=== PATIENT | male | born 1980 | race Caucasian/White ===

== ENCOUNTER → 2020-08-14 13:25 | Outpatient (CLI) | payer OTHER, SELFPAY ==
--- NOTE | ~2020-08-14 | XR_ITS ---
XR hand LT min 3V 08/14/2020 13:55 INDICATION: Left hand pain PROCEDURE: 3 views left hand COMPARISON: No prior studies for comparison. FINDINGS: Fracture, dislocation or subluxation is not identified. The soft tissues appear within norm al limits. No foreign bodies are identified. IMPRESSION: 1: NO ACUTE BONE OR JOINT ABNORMALITY IDENTIFIED. Reviewed, dictated and finalized at location B. ENT REGISTRATION MANAGER
== END ==
PROVIDERS: PCP Family Medicine; Visit Provider Nurse Practitioner
DX: M79.642 Pain in left hand (principal)
CPT/HCPCS: 73130

== ENCOUNTER 2021-03-25 09:02 | Emergency (ER) | payer OTHER, SELFPAY ==
--- NOTE | ~2021-03-25 | CT_ITS ---
EXAMINATION: CTA chest PE protocol EXAM DATE: 03/25/2021 10:42 INDICATION: Pleuritic chest pain, sob, COVID +, elevated dimer TECHNIQUE: Spiral CTA of the chest (pulmonary arteries) was performed with 100 cc Omnipaque 350 intr avenous contrast injection. Images were acquired during the pulmonary arterial phase. Coronal maxi mum intensity projection 3D-reconstructions were created by the technologist on dedicated workstation . Axial, coronal and sagittal reformatted images were reviewed. The dose-length product (DLP) for t his examination was 586.47 mGy-cm. The exposure was tailored according to patient size (auto mA exp osure control), and iterative reconstruction (ASIR) was used as additional dose reduction technique. There is no prior study for comparison. FINDINGS: Pulmonary arteries are well opacified and without intraluminal filling defects. No thora cic aortic dissection. There is moderate amount of peripheral and dependent predominant airspace dis ease with some volume loss, combination of pneumonia and atelectasis. Appearance is consistent with s ubacute stage COVID pneumonia. There are no pleural or pericardial effusions. Tracheobronchial taqueria e is patent. There is no mediastinal, hilar or axillary lymphadenopathy. There is no pneumothorax . Borderline cardiomegaly. No evidence of coronary arterial calcification. Upper abdomen is unrem arkable. There is thoracic spondylosis without osteoblastic or osteolytic lesions identified. IMPRESSION: 1. Moderate amount of subacute stage COVID pneumonia. 2. No pulmonary emboli. 3. Borderline heart enlargement. Reviewed, dictated and finalized at location B.
--- NOTE | ~2021-03-25 | XR_ITS ---
XR chest 1V portable DATE: 03/25/2021 09:19 INDICATION: Chest pain, shortness of breath, Covid-positive TECHNIQUE: Portable upright AP chest on 03/25/2021 at 0919 hours COMPARISON: 06/26/2013 1 view chest FINDINGS: There is hyperexpansion of the lungs. There are diffuse patchy bilateral pulmonary infiltra levon and/or atelectasis relatively sparing only the apices. No pleural effusion. No pneumothorax. Heart size appears normal. IMPRESSION: Hypoexpanded lungs and patchy bilateral infiltrate and/or atelectasis Reviewed, dictated and finalized at location A. IMPRESSION: Hypoexpanded lungs and patchy bilateral infiltrate and/or atelectas is
[2021-03-25 09:08] VITALS: BP 151/88; PULSE 98; RESP 25; TEMP 39.5; O2SAT 92
--- NOTE | 2021-03-25 09:09 | ECG_ITS ---
Measurements Intervals [place] Rate: 101 P: 29 IA: 146 QRS: 30 QRSD: 94 T: -13 QT: 319 QTc: 414 Interpretive Statements SINUS TACHYCARDIA POSSIBLE LEFT ATRIAL ENLARGEMENT INCOMPLETE RIGHT BUNDLE BRANCH BLOCK BORDERLINE ST-T WAVE ABNORMALITY- INFERIOR LEADS BASELINE ARTIFACT- I, II, AVR, AVL,A VF BORDERLINE ECG Electronically Signed On 03-25-2021 9:56:54 CDT by Edward Oropeza D.O.
[2021-03-25 09:21] VITALS: PULSE 109
[2021-03-25 09:28] LABS: Basophils Percent Auto 0.2 % (0.2-1.2); Hematocrit 44.8 % (42.0-52.0); Hemoglobin 15.6 g/dL (14.0-18.0); Immature Granulocyte Absolute 0.01 K/mm3 (0.00-0.031); Immature Granulocyte Percent A 0.2 % (0-0.5); Lymphocytes Absolute Auto 0.87 K/mm3 (0.9-3.2); Lymphocytes Percent Auto 20.4 % (18.3-44.2); Mean Corpuscular HGB Conc 34.8 g/dl (32-36); Mean Corpuscular Hemoglobin 29.5 pg (26-34); Mean Corpuscular Volume 84.8 fl (80-100); Mean Platelet Volume 9.7 fl (7.4-10.4); Monocytes Absolute Auto 0.4 K/mm3 (0.1-0.6); Monocytes Percent Auto 10.3 % (2.6-8.5); Neutrophils Absolute Auto 2.9 K/mm3 (1.3-6.7); Neutrophils Percent Auto 68.9 % (45.5-73.1); Platelet Count Result 155 k/mm3 (150-375); Red Blood Count 5.28 M/mm3 (4.6-6.20); Red Cell Distribution Width 12.1 % (11.5-14.5); White Blood Count 4.3 K/mm3 (4.5-10.0)
[2021-03-25 09:38] LABS: Anion Gap 9 mmol/L (8-16); Blood Urea Nitrogen 11 mg/dL (9-20); Calcium 9.2 mg/dL (8.4-10.2); Carbon Dioxide 31 mmol/L (22-30); Chloride 94 mmol/L (98-107); Estimated CRCL calculation 87 ml/min; Estimated Glomerular Filt Rate > 60; Glucose 113 mg/dL (75-110); Potassium 4.2 mmol/L (3.4-5.0); Sodium 134 mmol/L (137-145)
--- NOTE | 2021-03-25 09:43 | PC.NURSE ---
called lab talked to Savannah added on a D dimer, Hepatic LDH, Procalcitonin, and Ferritin
[2021-03-25 09:49] LABS: Troponin I < 0.012 ng/mL (0.000-0.034)
[2021-03-25 09:53] LABS: Partial Thromboplastin Time 39.6 SECONDS (22.3-36.8)
--- NOTE | 2021-03-25 09:53 | ED.SOB ---
HPI - SOB/Dyspnea General Chief Complaint: Shortness of Breath/Dyspnea Stated Complaint: SOB, Chest tightness, COVID + Time Seen by Provider: 03/25/21 09:26 Source: patient Mode of arrival: ambulatory Limitations: no limitations History of Present Illness HPI Narrative: This is a 40-year-old male that presents to the emergency department for shortness of breath x3 days. Reports he was diagnosed with coronavirus 1 week ago. Reports fevers, cough, congestion, and sore throat. Reports over the last couple of days he has started to feel short of breath. Reports pleuritic chest pain as well. He has not had his Covid vaccine. Denies lower extremity edema. Related Data Allergies Allergy/AdvReac Type Severity Reaction Status Date / Time No Known Allergies Allergy Verified 03/25/21 09:21 Review of Systems Review of Systems: Narrative: CONSTITUTIONAL: Reports fever ENT: Reports rhinorrhea, congestion, sore throat CARDIOVASCULAR: Reports chest pain. Denies edema. RESPIRATORY: Reports cough and dyspnea. GASTROINTESTINAL: Reports nausea All systems reviewed & are unremarkable except as noted in HPI and below PMFSH Past Medical History Medical History (Updated 03/25/21 @ 12:48 by Amna Rodríguez PA-C) No active medical problems Social History Social History (Updated 03/25/21 @ 09:58 by Amna Rodríguez PA-C) Substance use: never Gender identity (if verbalized by the patient): Male Exam Narrative: Exam Narrative: GENERAL: Well-appearing, well-nourished, and in no acute distress. HEAD: Normocephalic, atraumatic. EYES: EOMI. ENT: Nares clear, no rhinorrhea or epistaxis. Mucous membranes moist. Oropharynx without tonsillar hypertrophy exudate or other lesions. Bilateral TMs pearly victoria non-bulging NECK: Supple. No adenopathy or masses. CHEST: No respiratory distress. Rales at the lung bases bilaterally. No wheezes or rhonchi HEART: Regular rate and rhythm. No murmur heard. Normal peripheral pulses. EXTREMITIES: Normal range of motion. No edema. SKIN: Warm, dry, no rash. NEURO: No focal deficits. Alert and oriented x3. PSYCH: Normal mood and affect Course Vital Signs Vital signs: Vital Signs Temperature 103.1 F H 03/25/21 09:08 Pulse Rate 98 03/25/21 09:08 Respiratory Rate 25 H 03/25/21 09:08 Blood Pressure 151/88 H 03/25/21 09:08 Pulse Oximetry 92 03/25/21 09:08 Temperature 100.1 F H 03/25/21 12:16 Pulse Rate 79 03/25/21 12:16 Respiratory Rate 21 H 03/25/21 12:16 Blood Pressure 124/82 03/25/21 12:16 Pulse Oximetry 94 03/25/21 12:16 MDM - SOB/Dyspnea MDM Narrative Medical decision making narrative: Patient presents the emergency department for shortness of breath and pleuritic chest pain ongoing over the last couple of days. Patient diagnosed with coronavirus 1 week ago. Febrile and tachycardic upon arrival. Patient given doses of antipyretics. Heart rate normalized without intervention. CBC without concerning findings. Metabolic panel with mild transaminitis. LDH and ferritin are elevated. EKG with nonspecific ST changes. Baseline and 3-hour troponin are negative. D-dimer was elevated, so CTA of the chest was obtained. No evidence for PE. Does show moderate amount of Covid pneumonia. Patient was updated on case findings. He has maintained oxygen saturations in the mid 90s on room air and has not required any supplemental oxygen at this time. He is stable and felt appropriate for further outpatient evaluation. Was instructed to follow up with his PCP. He was given warnings to return to the ER Lab Data Attestation: I reviewed the patient's lab results. Result diagrams: 03/25/21 09:19 03/25/21 09:19 Labs: Lab Results 03/25/21 03/25/21 03/25/21 Range/Units 09:17 09:17 09:17 WBC (4.5-10.0) K/mm3 RBC (4.6-6.20) M/mm3 Hgb (14.0-18.0) g/dL Hct (42.0-52.0) % MCV (80-100) fl MCH (26-34) pg MCHC (32-36) g/d
[2021-03-25 10:06] VITALS: BP 122/76; PULSE 99; RESP 18; TEMP 38.5; O2SAT 93
[2021-03-25 10:07] LABS: Alanine Aminotransferase 46 U/L (4-50); Albumin Level 4.5 g/dL (3.5-5.1); Alkaline Phosphatase 83 U/L (38-126); Aspartate Amino Transferase 61 U/L (17-59); Bilirubin,Total 0.9 mg/dL (0.2-1.3); Lactate Dehydrogenase 746 U/L (313-618)
[2021-03-25 10:08] LABS: D Dimer 0.61 ug/mL (<0.48)
[2021-03-25 10:32] LABS: Procalcitonin 0.3 ng/mL
[2021-03-25 11:18] VITALS: BP 112/52; PULSE 84; RESP 20; TEMP 37.7; O2SAT 93
[2021-03-25 12:10] LABS: Ferritin > 2000.00 ng/mL (17.9-464)
[2021-03-25 12:16] VITALS: BP 124/82; PULSE 79; RESP 21; TEMP 37.8; O2SAT 94
[2021-03-25 12:40] LABS: Troponin I < 0.012 ng/mL (0.000-0.034)
[2021-03-25] MEDS: IBUPROFEN 600 MG TABLET PO (12:55)
[2021-03-25 13:40] VITALS: BP 127/81; PULSE 83; RESP 22; TEMP 37.1; O2SAT 94
== END 2021-03-25 13:45 | disposition home or self-care (01) ==
PROVIDERS: Physician Assistant; Emergency Provider Emergency Medicine; PCP Family Medicine
DX: U07.1 COVID-19 (principal); J12.82 Pneumonia due to coronavirus disease 2019
CPT/HCPCS: 36415; 71045; 71275; 80048; 80076; 82728; 83615; 84145; 84484; 85025; 85380; 85610; 85730; 93005; 96365; 99284; A9270; J0131; Q9967

== ENCOUNTER 2021-03-27 04:32 | Inpatient (IN) | payer OTHER, SELFPAY ==
[2021-03-27] VITALS (15 sets, daily range): BP systolic 120–138; BP diastolic 71–85; PULSE 60–99; RESP 20–29; TEMP 36.1–37.9; O2SAT 92–95; BMI 30.7
--- NOTE | ~2021-03-27 | CT_ITS ---
EXAMINATION: CTA chest PE protocol DATE: 03/27/2021 06:01 INDICATION: Shortness of breath TECHNIQUE: Computed tomography angiography (CTA) of the chest was performed with 100 mL Omnipaque-350 intravenous contrast timed to evaluate the pulmonary arteries. Coronal maximum intensity projection 3D-reconstructions were created by the technologist. The dose-length product (DLP) was 400.12 mGy-cm. Automated exposure control and iterative reconstruction technique were employed. COMPARISON: 03/25/2021 FINDINGS: The pulmonary arteries are well-opacified. No pulmonary embolism is identified. Airspace op acities persist in a mid and lower lung zone predominance without significant change. There is no ple ural effusion or pneumothorax. No pathologically enlarged thoracic lymph nodes are identified. The he art size is normal. There is mild thoracic spondylosis. IMPRESSION: 1. Stable bilateral airspace opacities, consistent with COVID pneumonia. No pulmonary embolism identi fied. Reviewed, dictated and finalized at location A. IMPRESSION: 1. Stable bilateral airspace opacities, consistent with COVID pneumonia. No pul monary embolism identified.
--- NOTE | ~2021-03-27 | XR_ITS ---
EXAMINATION: XR chest 1V portable INDICATION: Shortness of breath, COVID 19 positive TECHNIQUE: Portable AP chest at 0509 hours COMPARISON: 03/25/2021 FINDINGS: Diffuse airspace opacities persist with a mid and lower lung zone predominance without sign ificant change. There is no pleural effusion or pneumothorax. The cardiomediastinal silhouette is nor mal. The visualized osseous structures are unremarkable. IMPRESSION: 1. Stable diffuse lung disease, consistent with COVID pneumonia. Reviewed, dictated and finalized at location A.
--- NOTE | 2021-03-27 04:56 | ECG_ITS ---
Measurements Intervals [place] Rate: 90 P: 50 AL: 139 QRS: 45 QRSD: 95 T: 10 QT: 334 QTc: 410 Interpretive Statements SINUS RHYTHM DELAYED PRECORDIAL R/S TRANSITION MINIMAL Q WAVES- INFERIOR LEADS BORDERLINE ST-T WAVE ABNORMALITY- INFERIOR LEADS BASELINE ARTIFACT- I, II, V3-V6 BORDERLINE ECG Electronically Signed On 03-27-2021 7:14:23 CDT by Edward Oropeza D.O.
[2021-03-27 05:08] LABS: Basophils Percent Auto 0.2 % (0.2-1.2); Hematocrit 45.3 % (42.0-52.0); Hemoglobin 15.1 g/dL (14.0-18.0); Immature Granulocyte Absolute 0.03 K/mm3 (0.00-0.031); Immature Granulocyte Percent A 0.5 % (0-0.5); Lymphocytes Absolute Auto 0.73 K/mm3 (0.9-3.2); Mean Corpuscular HGB Conc 33.3 g/dl (32-36); Mean Corpuscular Volume 87.1 fl (80-100); Mean Platelet Volume 9.5 fl (7.4-10.4); Monocytes Absolute Auto 0.3 K/mm3 (0.1-0.6); Monocytes Percent Auto 6.1 % (2.6-8.5); Neutrophils Absolute Auto 4.5 K/mm3 (1.3-6.7); Neutrophils Percent Auto 80.2 % (45.5-73.1); Platelet Count Result 197 k/mm3 (150-375); Red Cell Distribution Width 12.5 % (11.5-14.5); White Blood Count 5.6 K/mm3 (4.5-10.0)
--- NOTE | 2021-03-27 05:08 | ED.GENADULT ---
HPI - General Adult General Chief complaint: Shortness of Breath/Dyspnea Stated complaint: COVID +, diff breathing Time Seen by Provider: 03/27/21 04:58 History of Present Illness HPI narrative: Patient 40-year-old gentleman who presents the emergency department with chief complaint of shortness of breath. The patient reports he was recently diagnosed with COVID-19 with then seen in the emergency department and diagnosed with Covid pneumonia. Patient reports has been using an albuterol inhaler and subsequently has gotten more more short of breath. Patient reports tonight he felt extremely short of breath and decided to come back to the emergency department. Patient was found to have a room air pulse ox of 85% at triage Related Data Allergies Allergy/AdvReac Type Severity Reaction Status Date / Time No Known Allergies Allergy Verified 03/27/21 04:51 Review of Systems Review of Systems: Narrative: A 10 system review of systems was completed on the patient and is negative except for what is stated in the HPI. Nursing and ancillary documentation was reviewed. PMFSH Past Medical History Medical History No active medical problems Social History Social History Substance use: never Gender identity (if verbalized by the patient): Male Exam Narrative: Exam Narrative: GENERAL: Well-appearing, well-nourished, and in no acute distress. HEAD: Normocephalic, atraumatic. EYES: PERRLA and EOMI. ENT: Nares clear, no rhinorrhea or epistaxis. Mucous membranes moist. NECK: Supple. CHEST: Clear to auscultation. No respiratory distress. HEART: Regular rate and rhythm. No murmur heard. Normal peripheral pulses. ABDOMEN: Soft, nontender, nondistended, normal active bowel sounds. EXTREMITIES: Normal range of motion. No edema. SKIN: Warm, dry, no rash. NEURO: No focal deficits. Alert and oriented x3. PSYCH: Normal mood and affect. Course Vital Signs Vital signs: Vital Signs Temperature 37.4 C 03/27/21 04:43 Pulse Rate 92 03/27/21 04:43 Respiratory Rate 24 H 03/27/21 04:43 Blood Pressure 133/83 03/27/21 04:43 Pulse Oximetry 92 03/27/21 04:43 Temperature 37.4 C 03/27/21 04:43 Pulse Rate 85 03/27/21 07:25 Respiratory Rate 20 03/27/21 07:25 Blood Pressure 127/80 03/27/21 07:25 Pulse Oximetry 92 03/27/21 07:25 Medical Decision Making Vital Signs Vital Signs: Vital Signs Temperature 37.4 C 03/27/21 04:43 Pulse Rate 92 03/27/21 04:43 Respiratory Rate 24 H 03/27/21 04:43 Blood Pressure 133/83 03/27/21 04:43 Pulse Oximetry 92 03/27/21 04:43 Temperature 37.4 C 03/27/21 04:43 Pulse Rate 85 03/27/21 07:25 Respiratory Rate 20 03/27/21 07:25 Blood Pressure 127/80 03/27/21 07:25 Pulse Oximetry 92 03/27/21 07:25 Lab Data Result diagrams: 03/27/21 04:57 03/27/21 04:57 Labs: Lab Results 03/27/21 03/27/21 03/27/21 Range/Units 04:57 04:57 05:34 WBC 5.6 (4.5-10.0) K/mm3 RBC 5.20 (4.6-6.20) M/mm3 Hgb 15.1 (14.0-18.0) g/dL Hct 45.3 (42.0-52.0) % MCV 87.1 (80-100) fl MCH 29.0 (26-34) pg MCHC 33.3 (32-36) g/dl RDW 12.5 (11.5-14.5) % Plt Count 197 (150-375) k/mm3 MPV 9.5 (7.4-10.4) fl Immature Gran % (Auto) 0.5 (0-0.5) % Neut % (Auto) 80.2 H (45.5-73.1) % Lymph % (Auto) 13.0 L (18.3-44.2) % Nolan % (Auto) 6.1 (2.6-8.5) % Eos % (Auto) 0.0 (0-4.4) % Baso % (Auto) 0.2 (0.2-1.2) % Lymph # (Auto) 0.73 L (0.9-3.2) K/mm3 Nolan # (Auto) 0.3 (0.1-0.6) K/mm3 Eos # (Auto) 0.0 (0-0.3) K/mm3 Baso # (Auto) 0.0 (0.0-0.1) K/mm3 Abs Immat Gran (auto) 0.03 (0.00-0.031) K/mm3 Absolute Neuts (auto) 4.5 (1.3-6.7) K/mm3 Absolute Nucleated RBC 0.0 (0.0-0.012) K/mm3 Nucleated RBC % 0.0 (0.0-0.2) % PT (11
[2021-03-27 05:17] LABS: Anion Gap 10 mmol/L (8-16); Blood Urea Nitrogen 15 mg/dL (9-20); Calcium 9.3 mg/dL (8.4-10.2); Carbon Dioxide 30 mmol/L (22-30); Chloride 94 mmol/L (98-107); Estimated CRCL calculation 95 ml/min; Estimated Glomerular Filt Rate > 60; Glucose 120 mg/dL (65-110); Potassium 4.2 mmol/L (3.4-5.0); Sodium 134 mmol/L (137-145)
[2021-03-27] MEDS: DEXAMETHASONE SOD PHOS INJ 4 MG/ML VIAL 6 MG IV PUSH (05:18)
[2021-03-27] MEDS: ALBUTEROL SULFATE (*SP) INHALER 2 PUFF INHALATION (05:19)
[2021-03-27 05:31] LABS: Alveolar/Arterial O2 Gradient 197.7 mmHg; Base Excess ABG 5.4 mEq/l (+/-2.0); Fractional Inspired Oxygen 40 %; HCO3 ABG 26.1 mEq/l (22.0-26.0); Oxygen Content ABG 20.6 %vol (16.0-22.0); Oxygen Saturation ABG 93.2 % (95.0-100.0); Oxyhemoglobin 90.7 % THb (90.0-100.0); PCO2 ABG 28.2 mmHg (35.0-45.0); PO2 ABG 55.1 mmHg (80.0-100.0); PO2 FiO2 Ratio Arterial Blood 1.38 %; Total Hemoglobin 16.2 g/dL (12.0-18.0)
[2021-03-27 05:33] LABS: Device NASAL CANNULA; Modified Allen's Test Pass; Site Drawn LEFT RADIAL; pH ABG 7.584 (7.350-7.450)
--- NOTE | 2021-03-27 05:44 | PC.NURSE ---
Pt to CT at this time.
[2021-03-27 06:01] LABS: Lactic Acid Reflex 1.7 mmol/L (0.7-2.1)
[2021-03-27 06:07] LABS: Prothrombin Time 12.8 Seconds (11.1-14.7)
[2021-03-27 06:09] LABS: Partial Thromboplastin Time 38.5 SECONDS (22.3-36.8)
[2021-03-27 06:45] LABS: NT Pro B Type Natriuretic Pept 82 pg/mL (5-100); Troponin I < 0.012 ng/mL (0.000-0.034)
--- NOTE | 2021-03-27 09:48 | ADMGEN ---
This patient, Brennan Britton, was admitted to [facility] S[facility] Room 328-01. Patient/family oriented to hospital policies and general routines including ID bracelet, bed and alarms, visiting hours, pain management, procedures, bathroom and other care routines, personal items, smoking policy, room service/diet, and visiting hours. Information on how to activate the Rapid Response Team has been discussed. Patient/Family are encouraged to report perceived risks to care and to ask questions if they do not understand what they are told or what they should do.
--- NOTE | 2021-03-27 14:05 | PM.IMHP ---
H&P: HPI History of Present Illness Date/Time: 03/27/21 14:05 this is a 40-year-old male patient who came to the emergency room with shortness of breath. The patient stated that he tested positive for COVID over week ago. His and children are sick as well. The patient has been using an albuterol inhaler and been getting more short of breath. Patient reported that he felt extremely short of breath and decided to come to emergency room department patient was found have a pulse ox of 85% on room air in triage. The patient was placed on 4 L of nasal cannula. the patient was started on Decadron and given an albuterol inhaler. ABGs 7.584. CO2 is 8.2. PO2 is 55. O2 saturation 93.2. Patient's troponins were negative. Chest x-ray was read as stable diffuse lung disease consistent with COVID pneumonia. The patient has not been vaccinated for COVID-19. CT a stable bilateral airspace opacities consistent with COVID pneumonia no pulmonary embolism. The patient is being admitted to observation status on the date of service 03/27/2021. Chief Complaint: sob Review of Systems Review of Systems: All systems reviewed & are unremarkable except as noted in HPI and below Constitutional: Constitutional: Reports as per HPI and Reports no additional constitutional complaints Eyes: Eyes: Reports as per HPI and Reports no additional eye complaints ENT: Reports system reviewed and no additional complaints, except as documented and Reports Normal hearing present Cardiovascular: Cardiovascular: Reports no additional cardiovascular complaints Respiratory: Respiratory: Reports no additional respiratory complaints and Reports no additional respiratory complaints Gastrointestinal: Gastrointestinal: Reports as per HPI and Reports no additional gastrointestinal complaints Musculoskeletal: Musculoskeletal: Reports no additional musculoskeletal complaints Integumentary/Breasts: Skin/Breast: Reports system reviewed and no additional complaints, except as docu and Reports as per HPI Neurologic: Reports system reviewed and no additional complaints, except as documented, Reports as per HPI and Reports Normal hearing present Psychiatric: Psychiatric: Reports no additional psychiatric complaints and Reports as per HPI Endocrine: Endocrine: Reports no additional endocrine complaints Hematologic/Lymphatic: Hematologic/Lymphatic: Reports no additional hematologic/lymphatic complaints Allergic/Immunologic: Allergic/Immunologic: Reports no additional allergic/immunologic complaints PMFSH Past Medical History Medical History (Updated 03/27/21 @ 07:50 by Isma Hayes MD) No active medical problems Surgical History Surgical History (Updated 03/27/21 @ 14:11 by Karrie Vaz NP) H/O hand surgery left hand ganglion cyst removed Social History Social History (Updated 03/27/21 @ 14:12 by Karrie aVz NP) Social History: the patient is to a who is the physician assistant manager. The patient would like for her to be a durable power assistant city attorney for healthcare. The patient is a full code. The patient has 3 children. He works as electrician control equipment. The patient occasionally drinks alcohol. He does not use any marijuana or illicit drugs. Smoking status: Never smoker Second hand tobacco smoke exposure: No Alcohol intake: never Substance use: never Gender identity (if verbalized by the patient): Male Sexual Orientation (if Verbalized by the Patient): Straight or Heterosexual Spiritual care concerns: No Meds Home Medications and Allergies Home Medications Medication Instructions Recorded Confirmed Type albuterol sulfate [ProAir HFA] 2 puff INHALATION QID PRN #8.5 g 03/25/21 03/27/21 Rx Allergies Allergy/AdvReac Type Severity Reaction Status Date / Time No Known Allergies Allergy Verified 03/27/21 04:51 Vital Signs Vital Signs - 24 hr 03/27/21 04:43 03/27/21 05:01 03/27/21 05:16 Temperature 37.4
[2021-03-27 16:21] LABS: Alanine Aminotransferase 47 U/L (4-50); Estimated CRCL calculation 113 ml/min; Estimated Glomerular Filt Rate > 60
[2021-03-27 16:22] LABS: INR 0.9; Prothrombin Time 12.3 Seconds (11.1-14.7)
[2021-03-27] MEDS: SODIUM CHLORIDE 0.9% IV 1,000 ML 125 ML IV CONT (16:56)
[2021-03-27] MEDS: REMDESIVIR 200 MG/NS 250 ML 200 MG/250 ML BAG 250 MG IVPB (16:56)
[2021-03-28] MEDS: SODIUM CHLORIDE 0.9% IV 1,000 ML 125 ML IV CONT (03:03)
[2021-03-28 04:00] VITALS: BP 123/71; PULSE 60; RESP 20; TEMP 36.2; O2SAT 95
--- NOTE | 2021-03-28 06:33 | PC.NURSE ---
After patient ambulated to the bathroom he got short of breath. Increased oxygen and oxygen saturation did improve.
[2021-03-28 07:11] LABS: Basophils Percent Auto 0.2 % (0.2-1.2); Hematocrit 42.3 % (42.0-52.0); Hemoglobin 14.9 g/dL (14.0-18.0); Immature Granulocyte Absolute 0.07 K/mm3 (0.00-0.031); Immature Granulocyte Percent A 0.8 % (0-0.5); Lymphocytes Absolute Auto 0.92 K/mm3 (0.9-3.2); Lymphocytes Percent Auto 10.9 % (18.3-44.2); Mean Corpuscular HGB Conc 35.2 g/dl (32-36); Mean Corpuscular Hemoglobin 30.2 pg (26-34); Mean Corpuscular Volume 85.6 fl (80-100); Mean Platelet Volume 9.5 fl (7.4-10.4); Monocytes Absolute Auto 0.5 K/mm3 (0.1-0.6); Neutrophils Percent Auto 82.1 % (45.5-73.1); Platelet Count Result 261 k/mm3 (150-375); Red Blood Count 4.94 M/mm3 (4.6-6.20); Red Cell Distribution Width 12.4 % (11.5-14.5); White Blood Count 8.5 K/mm3 (4.5-10.0)
[2021-03-28 07:30] LABS: Alanine Aminotransferase 55 U/L (4-50); Albumin Level 4.2 g/dL (3.5-5.1); Alkaline Phosphatase 97 U/L (38-126); Anion Gap 8 mmol/L (8-16); Aspartate Amino Transferase 62 U/L (17-59); Bilirubin,Total 0.8 mg/dL (0.2-1.3); Blood Urea Nitrogen 18 mg/dL (9-20); Carbon Dioxide 28 mmol/L (22-30); Chloride 101 mmol/L (98-107); Estimated CRCL calculation 113 ml/min; Estimated Glomerular Filt Rate > 60; Glucose 104 mg/dL (65-110); Magnesium 2.3 mg/dL (1.6-2.3); Potassium 4.6 mmol/L (3.4-5.0); Sodium 137 mmol/L (137-145)
[2021-03-28 07:52] LABS: Lactate Dehydrogenase 846 U/L (313-618)
[2021-03-28 08:00] VITALS: BP 115/67; PULSE 72; RESP 20; TEMP 36.8; O2SAT 93; O2SAT 96
[2021-03-28 08:00] LABS: INR 0.9; Prothrombin Time 12.4 Seconds (11.1-14.7)
[2021-03-28 08:32] VITALS: O2SAT 93
--- NOTE | 2021-03-28 10:22 | PM.IMPN ---
Progress Note: A&P Assessment and Plan (1) 2019 novel coronavirus-infected pneumonia (NCIP): Code(s): U07.1 - COVID-19; J12.82 - Pneumonia due to coronavirus disease 2018 Status: Acute Assessment and Plan: pulse ox upon arrival was 85% on room air chest x-ray showed stable diffusion lung disease consistent with a COVID pneumonia patient was placed on 4 L of oxygen and has been increased to 6 L of oxygen satting 93% Remdesivir 250 mg IV daily for 5 days. Decadron 6 mg IV daily for 5 days. continue albuterol inhaler 2 puffs q.4 p.r.n. encourage patient to prone Q 2 hours incentive spirometry and IPAP therapy Lovenox 40 mg subcu b.i.d. Tylenol for fever supplemental oxygen to maintain SpO2 greater than 94% (2) Respiratory failure: Qualifiers: Chronicity: acute Respiratory failure complication: hypoxia Qualified Code(s): J96.01 - Acute respiratory failure with hypoxia Code(s): J96.90 - Respiratory failure, unspecified, unspecified whether with hypoxia or hypercapnia Status: Acute Assessment and Plan: The patient tested positive for COVID-19 approximately 1 week ago. oxygen at 4 L per nasal cannula and increased to 6 L. non-rebreather, high-flow oxygen, BiPAP, then ventilator if need be. CTA negative for pulmonary emboli. Chest x-ray suggestive of COVID-19 pneumonia. trend SpO2 supplemental oxygen to maintain saturation greater than 94% Time Spent With Patient Time with patient: Greater than 35 minutes Subjective Date/time seen: 03/28/21 09:55 Interval history: Patient is a 40-year-old male with no known past medical history that presented to the emergency room with shortness of breath. Patient stated that he was tested positive for COVID over week ago and has had increased shortness of breath. He did see a provider and was prescribed albuterol inhaler which he has been using but has not been helping him. Today he still on 6 L of oxygen he states he still short of breath and he has been trying to lay on his belly more. He says that he has not feel any better or feeling worse. Patient denies having chest pain, nausea, vomiting, diarrhea, constipation, headache, lightheadedness, dizziness, loss of taste or smell. Review of Systems Review of Systems: All systems reviewed & are unremarkable except as noted in HPI and below Exam Const: General: cooperative, healthy appearing, comfortable, no acute distress, well developed, alert, awake and Physically active Nutritional Appearance: average body habitus and well nourished Orientation/consciousness: oriented to person, oriented to place, oriented to time and patient oriented x3 Limitations: physical limitations (shortness of breath ) HENMT: Head: normal to inspection, No palpable skull fracture present, normocephalic and atraumatic Ears: hearing grossly normal bilaterally and external ears normal General nose exam: Normal external nose present, Normal nares present and No nasal polyps present Eyes: General: appearance normal, both eyes and all related structures Alignment and Position: alignment normal Periorbital: periorbital findings normal Eyelids: eyelids normal Conjunctivae: conjunctivae normal Sclera: sclerae normal Cornea: corneas normal Pupils: Equal, round and reactive pupils present EOM: EOMs intact bilaterally Neck: Neck: normal visual inspection, full ROM, no lymphadenopathy, trachea midline and supple Thyroid: thyroid normal Carotids: normal carotid upstroke Lymphatic: no lymphadenopathy noted Chest: Chest palpation & inspection: normal inspection of the chest Resp: Effort & Inspection: normal respiratory effort, able to speak in complete sentences and Actively coughing productive Auscultation: diminished lung sounds bilateral in the lower lung avalos and throughout Percussion: percussion normal Cardio: Palpation: normal PMI Rate: regular rate Rhythm: regul
[2021-03-28] MEDS: DEXAMETHASONE SOD PHOS INJ 4 MG/ML VIAL 6 MG IV PUSH (10:53)
[2021-03-28 12:00] VITALS: BP 115/67; PULSE 72; RESP 20; TEMP 36.8; O2SAT 94
[2021-03-28 16:00] VITALS: BP 112/55; PULSE 62; RESP 20; TEMP 37.2; O2SAT 98
[2021-03-28] MEDS: ENOXAPARIN 40 MG/0.4 ML SYRINGE SUB-Q (16:43)
[2021-03-28 20:00] VITALS: BP 111/60; PULSE 63; RESP 18; TEMP 36.3; O2SAT 93
[2021-03-28] MEDS: REMDESIVIR 100 MG/NS 250 ML 100 MG/250 ML BAG 250 MG IVPB (21:33)
[2021-03-29] VITALS (8 sets, daily range): BP systolic 107–127; BP diastolic 67–78; PULSE 50–73; RESP 18; TEMP 35.8–36.8; O2SAT 91–95
[2021-03-29 06:46] LABS: Hematocrit 41.3 % (42.0-52.0); Hemoglobin 13.7 g/dL (14.0-18.0); Mean Corpuscular HGB Conc 33.2 g/dl (32-36); Mean Corpuscular Volume 87.5 fl (80-100); Mean Platelet Volume 9.5 fl (7.4-10.4); Platelet Count Result 289 k/mm3 (150-375); Red Blood Count 4.72 M/mm3 (4.6-6.20); Red Cell Distribution Width 12.5 % (11.5-14.5); White Blood Count 5.6 K/mm3 (4.5-10.0)
[2021-03-29 06:56] LABS: Prothrombin Time 13.5 Seconds (11.1-14.7)
[2021-03-29 07:07] LABS: Alanine Aminotransferase 51 U/L (4-50); Albumin Level 3.5 g/dL (3.5-5.1); Alkaline Phosphatase 81 U/L (38-126); Anion Gap 8 mmol/L (8-16); Aspartate Amino Transferase 40 U/L (17-59); Bilirubin,Total 0.7 mg/dL (0.2-1.3); Blood Urea Nitrogen 18 mg/dL (9-20); Carbon Dioxide 29 mmol/L (22-30); Chloride 101 mmol/L (98-107); Estimated CRCL calculation 102 ml/min; Estimated Glomerular Filt Rate > 60; Glucose 110 mg/dL (65-110); Magnesium 2.5 mg/dL (1.6-2.3); Potassium 4.6 mmol/L (3.4-5.0); Sodium 138 mmol/L (137-145)
[2021-03-29] MEDS: ENOXAPARIN 40 MG/0.4 ML SYRINGE SUB-Q ×2 (08:04→21:24)
[2021-03-29] MEDS: DEXAMETHASONE SOD PHOS INJ 4 MG/ML VIAL 6 MG IV PUSH (08:04)
--- NOTE | 2021-03-29 08:58 | PM.IMPN ---
Progress Note: A&P Assessment and Plan (1) 2019 novel coronavirus-infected pneumonia (NCIP): Code(s): U07.1 - COVID-19; J12.82 - Pneumonia due to coronavirus disease 2019 Status: Acute Assessment and Plan: pulse ox upon arrival was 85% on room air chest x-ray showed stable diffusion lung disease consistent with a COVID pneumonia patient was placed on 4 L of oxygen and has been increased to 6 L of oxygen satting 93% Remdesivir 250 mg IV daily for 5 days. (Day 3) Decadron 6 mg IV daily for 5 days. (Day 3/5) continue albuterol inhaler 2 puffs q.4 p.r.n. encourage patient to prone Q 2 hours incentive spirometry and IPAP therapy Lovenox 40 mg subcu b.i.d. Tylenol for fever supplemental oxygen to maintain SpO2 greater than 94% (2) Respiratory failure: Qualifiers: Chronicity: acute Respiratory failure complication: hypoxia Qualified Code(s): J96.01 - Acute respiratory failure with hypoxia Code(s): J96.90 - Respiratory failure, unspecified, unspecified whether with hypoxia or hypercapnia Status: Acute Assessment and Plan: The patient tested positive for COVID-19 approximately 1 week ago. oxygen at 3 L per nasal cannula, currently be titrated down non-rebreather, high-flow oxygen, BiPAP, then ventilator if need be. CTA negative for pulmonary emboli. Chest x-ray suggestive of COVID-19 pneumonia. trend SpO2 supplemental oxygen to maintain saturation greater than 94% Subjective Date/time seen: 03/29/21 08:25 Interval history: Patient is a 40-year-old male with no known past medical history that presented to the emergency room with shortness of breath. Patient is still complaining of shortness of breath however he did stated was better today. Patient was on 5 L will upon visit satting 97%. Patient was turned down to 3 L with no complaints of shortness of breath. Patient has been doing his incentive spirometer getting up to 500 to a 1000 Jolly. He also stated that he is coughing and has more production. Patient denies loss of appetite, taste or smell. Patient has been up to notice if he had any shortness of breath with exertion however would like to take a shower. He also complained of a headache and fogginess. That is probably from the medications that he is getting. I did talk to the patient about moving around the room. Patient denies chest pain, abdominal pain, nausea, vomiting, diarrhea, constipation, numbness tingling, sweats, Chills, fevers. Review of Systems Review of Systems: All systems reviewed & are unremarkable except as noted in HPI and below Exam Const: General: cooperative, healthy appearing, comfortable, no acute distress, well developed, alert, awake and Physically active Nutritional Appearance: average body habitus and well nourished Orientation/consciousness: oriented to person, oriented to place, oriented to time and patient oriented x3 Limitations: physical limitations (shortness of breath ) HENMT: Head: normal to inspection, No palpable skull fracture present, normocephalic and atraumatic Ears: hearing grossly normal bilaterally and external ears normal General nose exam: Normal external nose present, Normal nares present and No nasal polyps present Eyes: General: appearance normal, both eyes and all related structures Alignment and Position: alignment normal Periorbital: periorbital findings normal Eyelids: eyelids normal Conjunctivae: conjunctivae normal Sclera: sclerae normal Cornea: corneas normal Pupils: Equal, round and reactive pupils present EOM: EOMs intact bilaterally Neck: Neck: normal visual inspection, full ROM, no lymphadenopathy, trachea midline and supple Thyroid: thyroid normal Carotids: normal carotid upstroke Lymphatic: no lymphadenopathy noted Chest: Chest palpation & inspection: normal inspection of the chest Resp: Effort & Inspection: normal respiratory effort, able to speak in c
[2021-03-29] MEDS: REMDESIVIR 100 MG/NS 250 ML 100 MG/250 ML BAG 250 MG IVPB (21:05)
[2021-03-30] VITALS (8 sets, daily range): BP systolic 112–126; BP diastolic 66–78; PULSE 49–70; RESP 16–18; TEMP 36.1–36.8; O2SAT 94–99
[2021-03-30 06:29] LABS: Hematocrit 43.3 % (42.0-52.0); Hemoglobin 14.3 g/dL (14.0-18.0); Mean Corpuscular Volume 87.8 fl (80-100); Mean Platelet Volume 9.1 fl (7.4-10.4); Platelet Count Result 363 k/mm3 (150-375); Red Blood Count 4.93 M/mm3 (4.6-6.20); Red Cell Distribution Width 12.4 % (11.5-14.5); White Blood Count 9.5 K/mm3 (4.5-10.0)
[2021-03-30 06:44] LABS: Prothrombin Time 13.1 Seconds (11.1-14.7)
[2021-03-30 06:47] LABS: Alanine Aminotransferase 53 U/L (4-50); Albumin Level 3.7 g/dL (3.5-5.1); Alkaline Phosphatase 82 U/L (38-126); Anion Gap 6 mmol/L (8-16); Aspartate Amino Transferase 34 U/L (17-59); Bilirubin,Total 0.7 mg/dL (0.2-1.3); Blood Urea Nitrogen 18 mg/dL (9-20); Calcium 9.1 mg/dL (8.4-10.2); Carbon Dioxide 31 mmol/L (22-30); Chloride 102 mmol/L (98-107); Estimated CRCL calculation 113 ml/min; Estimated Glomerular Filt Rate > 60; Glucose 96 mg/dL (65-110); Magnesium 2.3 mg/dL (1.6-2.3); Potassium 4.4 mmol/L (3.4-5.0); Sodium 139 mmol/L (137-145)
[2021-03-30] MEDS: DEXAMETHASONE SOD PHOS INJ 4 MG/ML VIAL 6 MG IV PUSH (08:02)
[2021-03-30] MEDS: ENOXAPARIN 40 MG/0.4 ML SYRINGE SUB-Q ×2 (08:02→22:04)
--- NOTE | 2021-03-30 19:05 | PM.IMPN ---
Progress Note: A&P Assessment and Plan (1) 2019 novel coronavirus-infected pneumonia (NCIP): Code(s): U07.1 - COVID-19; J12.82 - Pneumonia due to coronavirus disease 2019 Status: Acute Assessment and Plan: CXR stable diffusion lung disease consistent with a COVID pneumonia patient is maintaining O2 sats on 3 L NC Remdesivir 250 mg IV daily for 5 days. (Day 4/5) Decadron 6 mg IV daily for 5 days. (Day 4/5) continue albuterol inhaler 2 puffs q.4 p.r.n. encourage patient to prone Q 2 hours incentive spirometry and IPAP therapy Lovenox 40 mg sc b.i.d. Tylenol for fever wean supplemental oxygen to maintain SpO2 greater than 94% (2) Respiratory failure: Qualifiers: Chronicity: acute Respiratory failure complication: hypoxia Qualified Code(s): J96.01 - Acute respiratory failure with hypoxia Code(s): J96.90 - Respiratory failure, unspecified, unspecified whether with hypoxia or hypercapnia Status: Acute Assessment and Plan: Improved 2/2 COVID-19 + approximately 1 week ago oxygen at 3 L per nasal cannula, wean as tolerated CTA negative for pulmonary emboli CXR suggestive of COVID-19 pneumonia supplemental oxygen to maintain saturation greater than 94% Subjective Date/time seen: 03/30/21 12:05 Pt continues with SOB; though improved; sense of taste has returne; no new complaints Review of Systems Review of Systems: All systems reviewed & are unremarkable except as noted in HPI and below Exam Const: General: no acute distress, alert and awake Orientation/consciousness: patient oriented x3 HENMT: Head: normocephalic and atraumatic Ears: hearing grossly normal bilaterally and external ears normal Face and sinus: face symmetric Mouth: Yes Normal oral and palatal mucosa present Eyes: EOM: EOMs intact bilaterally Neck: Neck: full ROM, trachea midline and no JVD Thyroid: thyroid normal Chest: Chest palpation & inspection: normal inspection of the chest Resp: Effort & Inspection: normal respiratory effort Cardio: Jugular venous distension: no JVD Rate: regular rate GI: Inspection: normal to inspection Auscultation: normal bowel sounds : General: Yes no CVA tenderness Skin: General skin exam: normal color Rashes: no rashes Neuro: General: patient oriented x3 and CN's II-XI intact bilaterally Cranial nerves: Yes Equal, round and reactive pupils present Speech: normal speech Psych: Appearance: grossly normal Affect: normal affect Judgement: Good judgement present (Psych) Objective Data Vital Signs Vital Signs: Vital Signs - 24 hr 03/29/21 20:00 03/30/21 00:00 03/30/21 04:00 Temperature 36.5 C 36.3 C L 36.4 C Pulse Rate 60 49 L 52 L Respiratory Rate 18 18 18 Blood Pressure 121/78 116/74 125/78 Pulse Oximetry 91 95 96 03/30/21 08:00 03/30/21 12:00 03/30/21 16:00 Temperature 36.1 C L 36.1 C L 36.8 C Pulse Rate 62 62 63 Respiratory Rate 16 16 16 Blood Pressure 119/66 112/75 122/74 Pulse Oximetry 95 96 96 03/30/21 17:30 Temperature Pulse Rate Respiratory Rate Blood Pressure Pulse Oximetry 94 Intake/Output Intake/Output: Intake & Output 03/27/21 03/28/21 03/29/21 03/30/21 23:59 23:59 23:59 23:59 Intake Total 1290 2480 2990 2070 Output Total 820 800 Balance 1290 1660 2990 1270 Meds/Results Medications: Active Medications Generic Name Dose Route Start Last Admin Trade Name Freq PRN Reason Stop Dose Admin Acetaminophen 650 mg 03/27/21 07:38 Acetaminophen 325 Mg Tablet PO Q4H PRN Mild Pain (1-3) or Fever Albuterol 2 puff 03/27/21 14:35 Albuterol Sulfate (*Sp) Inhaler INHALATION Q6HRT PRN Shortness Of Breath Dexamethasone Sodium Phosphate 6 mg 03/28/21 09:00 03/30/21 08:02 Dexamethasone Sod Phos Inj 4 Mg/Ml Vial IV PUSH 04/06/21 09:01 6 mg DAILY SAKINA Administration Enoxaparin Sodium 40 mg 03/29/21 21:00 03/30/21 08:02 Enoxaparin 40 Mg/0.4 Ml Syringe CONNOLLY
[2021-03-30] MEDS: REMDESIVIR 100 MG/NS 250 ML 100 MG/250 ML BAG 250 MG IVPB (22:04)
[2021-03-31 04:00] VITALS: BP 125/79; PULSE 56; RESP 18; TEMP 36.1; O2SAT 95
[2021-03-31 07:22] LABS: Prothrombin Time 12.7 Seconds (11.1-14.7)
[2021-03-31 07:23] LABS: Alanine Aminotransferase 57 U/L (4-50); Anion Gap 6 mmol/L (8-16); Blood Urea Nitrogen 18 mg/dL (9-20); Calcium 9.4 mg/dL (8.4-10.2); Carbon Dioxide 29 mmol/L (22-30); Chloride 104 mmol/L (98-107); Estimated CRCL calculation 102 ml/min; Estimated Glomerular Filt Rate > 60; Glucose 85 mg/dL (65-110); Potassium 4.6 mmol/L (3.4-5.0); Sodium 139 mmol/L (137-145)
[2021-03-31 08:00] VITALS: BP 111/72; PULSE 60; RESP 20; TEMP 36.7; O2SAT 96
[2021-03-31] MEDS: DEXAMETHASONE SOD PHOS INJ 4 MG/ML VIAL 6 MG IV PUSH (08:20)
[2021-03-31] MEDS: ENOXAPARIN 40 MG/0.4 ML SYRINGE SUB-Q ×2 (08:20→21:56)
[2021-03-31 12:00] VITALS: BP 111/67; PULSE 75; RESP 20; TEMP 37; O2SAT 93; O2SAT 95
--- NOTE | 2021-03-31 15:10 | PM.IMPN ---
Progress Note: A&P Assessment and Plan (1) 2019 novel coronavirus-infected pneumonia (NCIP): Code(s): U07.1 - COVID-19; J12.82 - Pneumonia due to coronavirus disease 2019 Status: Acute Assessment and Plan: CXR stable diffusion lung disease consistent with a COVID pneumonia patient is maintaining O2 sats on RA Remdesivir 250 mg IV daily for 5 days. (Day 55) Decadron 6 mg IV daily for 5 days. (Day 55) continue albuterol inhaler 2 puffs q.4 p.r.n. encourage patient to prone Q 2 hours incentive spirometry and IPAP therapy Lovenox 40 mg sc b.i.d. Tylenol for fever wean supplemental oxygen to maintain SpO2 greater than 94% D/c home in a.m. (2) Respiratory failure: Qualifiers: Chronicity: acute Respiratory failure complication: hypoxia Qualified Code(s): J96.01 - Acute respiratory failure with hypoxia Code(s): J96.90 - Respiratory failure, unspecified, unspecified whether with hypoxia or hypercapnia Status: Acute Assessment and Plan: Resolved 2/2 COVID-19 + approximately 1 week ago on RA CTA negative for pulmonary emboli CXR suggestive of COVID-19 pneumonia supplemental oxygen to maintain saturation greater than 94% Subjective Date/time seen: 03/31/21 15:10 Review of Systems Review of Systems: All systems reviewed & are unremarkable except as noted in HPI and below Exam Const: General: no acute distress, alert and awake Orientation/consciousness: patient oriented x3 HENMT: Head: normocephalic and atraumatic Ears: hearing grossly normal bilaterally and external ears normal Face and sinus: face symmetric Mouth: Yes Normal oral and palatal mucosa present Eyes: Pupils: Equal, round and reactive pupils present EOM: EOMs intact bilaterally Neck: Neck: full ROM, trachea midline and no JVD Thyroid: thyroid normal Chest: Chest palpation & inspection: normal inspection of the chest Resp: Effort & Inspection: normal respiratory effort Auscultation: clear to auscultation bilaterally Cardio: Jugular venous distension: no JVD Rate: regular rate GI: Inspection: normal to inspection Auscultation: normal bowel sounds : General: Yes no CVA tenderness Back/Spine/Pelvis: Back: no CVA tenderness Skin: General skin exam: normal color Rashes: no rashes Neuro: General: patient oriented x3 and CN's II-XI intact bilaterally Cranial nerves: Yes Equal, round and reactive pupils present Speech: normal speech Psych: Appearance: grossly normal Affect: normal affect Judgement: Good judgement present (Psych) Objective Data Vital Signs Vital Signs: Vital Signs - 24 hr 03/30/21 16:00 03/30/21 17:30 03/30/21 20:00 Temperature 36.8 C 36.3 C L Pulse Rate 63 70 Respiratory Rate 16 18 Blood Pressure 122/74 118/70 Pulse Oximetry 96 94 94 03/30/21 23:56 03/31/21 04:00 03/31/21 08:00 Temperature 36.3 C L 36.1 C L 36.7 C Pulse Rate 50 L 56 L 60 Respiratory Rate 18 18 20 Blood Pressure 126/72 125/79 111/72 Pulse Oximetry 99 95 96 03/31/21 12:00 Temperature 37.0 C Pulse Rate 75 Respiratory Rate 20 Blood Pressure 111/67 Pulse Oximetry 93 Intake/Output Intake/Output: Intake & Output 03/28/21 03/29/21 03/30/21 03/31/21 23:59 23:59 23:59 23:59 Intake Total 2480 2990 2070 1360 Output Total 820 800 Balance 1660 2990 1270 1360 Meds/Results Medications: Active Medications Generic Name Dose Route Start Last Admin Trade Name Freq PRN Reason Stop Dose Admin Acetaminophen 650 mg 03/27/21 07:38 Acetaminophen 325 Mg Tablet PO Q4H PRN Mild Pain (1-3) or Fever Albuterol 2 puff 03/27/21 14:35 Albuterol Sulfate (*Sp) Inhaler INHALATION Q6HRT PRN Shortness Of Breath Dexamethasone Sodium Phosphate 6 mg 03/28/21 09:00 03/31/21 08:20 Dexamethasone Sod Phos Inj 4 Mg/Ml Vial IV PUSH 04/06/21 09:01 6 mg DAILY SAKINA Administration Enoxaparin Sodium 40 mg 03/29/21 21:00 03/31/21 08:20 Enoxap
[2021-03-31 16:00] VITALS: BP 103/63; PULSE 75; RESP 20; TEMP 37.2; O2SAT 95
[2021-03-31 20:00] VITALS: BP 119/65; PULSE 79; RESP 18; TEMP 36.9; O2SAT 92
[2021-03-31] MEDS: REMDESIVIR 100 MG/NS 250 ML 100 MG/250 ML BAG 250 MG IVPB (21:56)
[2021-03-31 23:32] VITALS: BP 115/57; PULSE 63; RESP 18; TEMP 36.9; O2SAT 95
[2021-04-01 03:58] VITALS: BP 107/58; PULSE 56; RESP 18; TEMP 36.6; O2SAT 94
[2021-04-01 06:46] LABS: Basophils Percent Auto 0.5 % (0.2-1.2); Eosinophils Percent Auto 0.2 % (0-4.4); Hematocrit 45.4 % (42.0-52.0); Hemoglobin 14.8 g/dL (14.0-18.0); Immature Granulocyte Absolute 0.18 K/mm3 (0.00-0.031); Immature Granulocyte Percent A 2.9 % (0-0.5); Lymphocytes Percent Auto 17.7 % (18.3-44.2); Mean Corpuscular HGB Conc 32.6 g/dl (32-36); Mean Corpuscular Hemoglobin 29.2 pg (26-34); Mean Corpuscular Volume 89.7 fl (80-100); Monocytes Absolute Auto 0.6 K/mm3 (0.1-0.6); Neutrophils Absolute Auto 4.3 K/mm3 (1.3-6.7); Neutrophils Percent Auto 69.7 % (45.5-73.1); Platelet Count Result 415 k/mm3 (150-375); Red Blood Count 5.06 M/mm3 (4.6-6.20); Red Cell Distribution Width 12.5 % (11.5-14.5); White Blood Count 6.2 K/mm3 (4.5-10.0)
[2021-04-01 06:54] LABS: Anion Gap 7 mmol/L (8-16); Blood Urea Nitrogen 17 mg/dL (9-20); Calcium 8.9 mg/dL (8.4-10.2); Carbon Dioxide 28 mmol/L (22-30); Chloride 104 mmol/L (98-107); Estimated CRCL calculation 94 ml/min; Estimated Glomerular Filt Rate > 60; Glucose 111 mg/dL (65-110); Sodium 139 mmol/L (137-145)
[2021-04-01 08:00] VITALS: BP 113/79; PULSE 70; RESP 16; TEMP 36.2; O2SAT 95; O2SAT 98
[2021-04-01] MEDS: ENOXAPARIN 40 MG/0.4 ML SYRINGE SUB-Q (08:48)
[2021-04-01] MEDS: DEXAMETHASONE SOD PHOS INJ 4 MG/ML VIAL 6 MG IV PUSH (08:48)
--- NOTE | 2021-04-01 09:09 | PM.DS ---
DS: Admitting Diagnosis Admitting Diagnosis Admitting Diagnosis: shortness of breath DS: Discharge Diagnosis Discharge Diagnosis (1) 2019 novel coronavirus-infected pneumonia (NCIP): Code(s): U07.1 - COVID-19; J12.82 - Pneumonia due to coronavirus disease 2018 Status: Acute Assessment and Plan: CXR stable diffusion lung disease consistent with a COVID pneumonia patient is maintaining O2 sats on RA S/p Remdesivir 250 mg IV daily for 5 days. (Day 01/13) S/pDecadron 6 mg IV daily for 5 days. (Day 01/13) s/Pcontinue albuterol inhaler 2 puffs q.4 p.r.n. encourage patient to prone Q 2 hours s/p incentive spirometry and IPAP therapy S/p Lovenox 40 mg sc b.i.d. D/c home (2) Respiratory failure: Qualifiers: Chronicity: acute Respiratory failure complication: hypoxia Qualified Code(s): J96.01 - Acute respiratory failure with hypoxia Code(s): J96.90 - Respiratory failure, unspecified, unspecified whether with hypoxia or hypercapnia Status: Acute Assessment and Plan: Resolved 2/2 COVID-19 + approximately 1 week ago on RA CTA negative for pulmonary emboli CXR suggestive of COVID-19 pneumonia supplemental oxygen to maintain saturation greater than 94% DS: Summary Hospital Course Hospital Course: 40-year-old male patient who came to the emergency room with worsening shortness of breath. The patient reported that he tested positive for COVID over week ago. His and children are sick as well. The patient had been using an albuterol inhaler with no improvement. In the ED the patient was found have a pulse ox of 85% on room air. The patient was placed on 4 L of nasal cannula; Decadron and given an albuterol inhaler were initiated. ABG showed 7.584. CO2 is 8.2. PO2 is 55. O2 saturation 93.2. Patient's troponins were negative. Chest x-ray was read as stable diffuse lung disease consistent with COVID pneumonia. The patient has not been vaccinated for COVID-19. CT a stable bilateral airspace opacities consistent with COVID pneumonia no pulmonary embolism. The patient has improved and is maintaining O2 sats on room air. He was treated with Remdesivir and Decadron for 5 days. He is stable and ready for discharge. He has been give instruction to follow up with his PCP. Time Spent with Patient Time attestation: Total time spent providing and/or coordinating discharge services: Exam Const: General: no acute distress, alert and awake Orientation/consciousness: patient oriented x3 HENMT: Head: normocephalic and atraumatic Ears: hearing grossly normal bilaterally and external ears normal Face and sinus: face symmetric Mouth: Yes Normal oral and palatal mucosa present Eyes: Pupils: Equal, round and reactive pupils present EOM: EOMs intact bilaterally Neck: Neck: full ROM, trachea midline and no JVD Thyroid: thyroid normal Chest: Chest palpation & inspection: normal inspection of the chest Resp: Effort & Inspection: normal respiratory effort Auscultation: clear to auscultation bilaterally Cardio: Jugular venous distension: no JVD Rate: regular rate GI: Inspection: normal to inspection Auscultation: normal bowel sounds : General: Yes no CVA tenderness Back/Spine/Pelvis: Back: no CVA tenderness Skin: General skin exam: normal color Rashes: no rashes Neuro: General: patient oriented x3 and CN's II-XI intact bilaterally Cranial nerves: Yes Equal, round and reactive pupils present Speech: normal speech Psych: Appearance: grossly normal Affect: normal affect Judgement: Good judgement present (Psych) DS: Data Data Completed and Pending Labs on day of discharge: Labs from last 24 hours 04/01/21 04/01/21 06:19 06:19 WBC 6.2 RBC 5.06 Hgb 14.8 Hct 45.4 MCV 89.7 MCH 29.2 MCHC 32.6 RDW 12.5 Plt Count 415 H MPV 9.0 Immature Gran % (Auto) 2.9 H Neut % (Auto) 69.7 Lymph % (Auto) 17.7 L Nicholas % (Auto) 9.0 H Eos % (Au
== END 2021-04-01 11:40 | disposition home or self-care (01) | DRG 177 ==
LOC: ANHED 08:01 → ANH3MEDSUR 08:46
PROVIDERS: Nurse Practitioner; Nurse Practitioner Adult Health; Admitting Provider Internal Medicine; Emergency Provider Emergency Medicine; PCP Family Medicine; Visit Provider Internal Medicine
DX: U07.1 COVID-19 (principal); J12.82 Pneumonia due to coronavirus disease 2019; J96.01 Acute respiratory failure with hypoxia
CPT/HCPCS: 36415; 36600; 71045; 71275; 80048; 80053; 82565; 82805; 83605; 83615; 83735; 83880; 84443; 84460; 84484; 85025; 85027; 85610; 85730; 87040; 93005; 94640; 94667; 96361; 96365; 96372; 96374; 96375; 99285; A9270; G0378; J1100; J1650; J7030; Q9967

== ENCOUNTER → 2021-07-05 10:02 | Outpatient (CLI) | payer OTHER, SELFPAY ==
--- NOTE | ~2021-07-05 | XR_ITS ---
EXAMINATION: XR chest 2V EXAM DATE: 07/05/2021 10:14 INDICATION: Exertional dyspnea . TECHNIQUE: Frontal and lateral projections of the chest obtained and reviewed. Comparison is made to prior examination from 03/27/2021. FINDINGS: Previously seen diffuse airspace disease has resolved. The lungs are clear. There are no p leural effusions. The cardiomediastinal silhouette is within normal limits. There is no pneumothora x suspected. The bones and soft tissues are unremarkable. IMPRESSION: Unremarkable chest x-ray exam. Reviewed, dictated and finalized at location B.
== END ==
PROVIDERS: PCP Family Medicine; Visit Provider Family Medicine
DX: R06.00 Dyspnea, unspecified (principal); Z86.16 Personal history of COVID-19
CPT/HCPCS: 71046